=== PATIENT | male | born 1990 | race Caucasian/White ===

== ENCOUNTER 2017-10-07 20:40 | Emergency (ER) | payer BC ==
[2017-10-07] MEDS ORDERED: Diph,Pert(Acell),Tet Vac 0.5 ML SYR IM ONE (20:56)
--- NOTE | 2017-10-07 20:58 | Emergency Department Record ---
History of Present Illness - General Chief Complaint: Animal Bite Stated Complaint: RT EYELID LACERATION Time Seen by Provider: 10/07/17 20:48 Source: Patient Mode of Arrival: Ambulatory Limitations: No limitations - History of Present Illness Initial Commments: The patient is here due to a dog bite to the R upper eyelid. He denies any vision issues and his Td is not UTD. He state the dog's rabies shots are UTD. Onset/Timin -: Minutes(s) Location: Face Place: Home Context: Accidental - [place] Coma Scale Eye Response: (4) Open spontaneously Motor Response: (6) Obeys commands Verbal Response: (5) Oriented Yas Total: 15 - Related Data Hx Tetanus Toxoid Vaccination: Yes Patient Tetanus UTD (within 5 yrs): No Home Medications Medication Instructions Recorded Confirmed Last Taken Baclofen 10 mg PO QAM 10/07/17 10/07/17 10/06/17 Previous Rx's Medication Instructions Recorded Amoxicillin/Potassium Clav 1 tab PO BID #14 tab 10/07/17 [Augmentin 875-125 Tablet] Allergies Allergy/AdvReac Type Severity Reaction Status Date / Time No Known Drug Allergies Allergy Verified 10/07/17 20:45 Travel Screening - Travel/Exposure Within Last 30 Days Have you traveled within the last 30 days?: No - Travel Symptoms Symptom Screening: None Review of Systems Constitutional: Denies: Chills, Fever Past Medical History - SOCIAL HISTORY Smoking Status: Never smoker Alcohol Use: Rare Drug Use: None - RESPIRATORY Hx Respiratory Disorders: No - CARDIOVASCULAR Hx Cardio Disorders: No - NEURO Hx Neuro Disorders: Yes Comment:: Cerebal palsy - GI Hx GI Disorders: No - Hx Genitourinary Disorders: No - ENDOCRINE Hx Endocrine Disorders: No - MUSCULOSKELETAL Hx Musculoskeletal Disorders: No - PSYCH Hx Psych Problems: No - HEMATOLOGY/ONCOLOGY Hx Hematology/Oncology Disorders: No Family Medical History Any Significant Family History?: No Physical Exam - General General Appearance: Alert, Oriented x3, Cooperative, No acute distress - Head Head exam: Atraumatic, Normocephalic, Normal inspection Image of Face/Head: 1 - 1 cm lac. - Eye Eye exam: PERRL, EOMI. negative: Normal appearance (There is a 1 cm superficial lac to the R upper eyelid.) Course Vital Signs 10/07/17 20:46 Temperature 98.5 F Pulse Rate [ 78 Pulse Ox Probe] Respiratory 20 Rate Blood Pressure 121/64 [Left Arm] Pulse Ox 98 - Reevaluation(s) Reevaluation #1: Procedure note: The R eyelid laceration was cleansed with betadine and anesth. with 1 cc Lido 1% with Epi. The wound was scrubbed with sterile saline and was closed with 3 5.0 nylon sutures. There were no complications. 10/07/17 21:23 Disposition Disposition: Discharge Clinical Impression: Eyelid laceration Qualifiers: Encounter type: initial encounter Laterality: right Qualified Code(s): S01.111A - Laceration without foreign body of right eyelid and periocular area, initial encounter Disposition: Home, Self-Care Condition: (2) Stable Instructions: Animal Bite (ED) Additional Instructions: Keep dry for 2 days and watch for signs of any infection. Take the Augmentin as directed. Please have the sutures removed in 5-7 days. Prescriptions: Amoxicillin/Potassium Clav [Augmentin 875-125 Tablet] 1 tab PO BID #14 tab Forms: Patient Portal Access Time of Disposition: 21:22 Quality - Quality Measures Quality Measures: N/A - Blood Pressure Screening View Details: Yes Does Patient Have Any of the Following: No Blood Pressure Classification: Pre-Hypertensive BP Reading Systolic Measurement: 121 Diastolic Measurement: 64 Screening for High Blood Pressure: < Pre-Hypertensive BP, F/U Documented > [ [id number]] Pre-Hypertensive Follow-up Interventions: Referral to alternative/primary care provider.
[2017-10-07] MEDS ORDERED: AMOXICILLIN/POTASSIUM CLAV 875MG/125MG TABLET PO ONE ×2 (21:20→21:27)
== END 2017-10-07 21:37 | disposition home or self-care (01) ==
LOC: ER 20:40
DX: S01.111A Laceration without foreign body of right eyelid and periocular area, initial encounter (principal); W54.0XXA Bitten by dog, initial encounter; Y92.009 Unspecified place in unspecified non-institutional (private) residence as the place of occurrence of the external cause
CPT/HCPCS: 12011; 90715; 96372; 99283